=== PATIENT | female | born 1980 | race Two or more races ===

== ENCOUNTER 2021-10-17 20:52 | Emergency (ER) | payer SELFPAY ==
[~2021-10-17] VITALS: Ht 152.4 cm; Wt 80.3 kg
[2021-10-17 20:54] VITALS: BP 162/108
== END 2021-10-17 22:19 | disposition left against medical advice (07) ==
LOC: ER 20:52
DX: N93.9 Abnormal uterine and vaginal bleeding, unspecified (principal); Z53.21 Procedure and treatment not carried out due to patient leaving prior to being seen by health care provider